=== PATIENT | male | born 1955 | race Caucasian/White ===

== ENCOUNTER 2018-09-15 09:10 | Inpatient (IN) ==
[2018-09-15] MEDS ORDERED: IOPAMIDOL 100 ML BOTTLE IV ONE (09:11)
[2018-09-15] MEDS ORDERED: 0.9 % SODIUM CHLORIDE 1,000 ML IV ONE (09:42)
[2018-09-15 10:26] LABS: Basophils # (Auto) 0 K/mcL (0.0-0.3); Basophils % (Auto) 0.2 % (0.0-2.0); Eosinophils # (Auto) 0 K/mcL (0.0-0.7); Eosinophils % (Auto) 0.2 % (0.0-7.0); Granulocytes % (Auto) 82.6 % (38.0-78.0); Lymphocytes # (Auto) 1.6 K/mcL (1.5-4.8); Lymphocytes % (Auto) 11.4 % (15.5-49.0); Mean Cell Volume 84.5 fL (80.0-100.0); Mean Corpuscular HGB Conc 34.1 g/dL (31.0-36.0); Mean Corpuscular Hemoglobin 28.8 pg (26.0-34.0); Monocytes # (Auto) 0.8 K/mcL (0.1-0.9); Monocytes % (Auto) 5.6 % (1.0-12.0); Platelet Count 192 K/mcL (140-440); RBC 5.32 M/mcL (4.50-5.90); Red Cell Distribution Width 13.3 % (11.5-14.5)
[2018-09-15 10:44] LABS: ALT/SGPT 22 U/l (0-40); Albumin 4.4 gm/dL (3.2-5.2); Albumin/Globulin Ratio 1.3 (1.0-2.3); Alkaline Phosphatase 71 U/L (39-117); Blood Urea Nitrogen 15 mg/dl (8-23); C-Reactive Protein 5.3 mg/dl (0.0-0.8)
--- NOTE | 2018-09-15 10:53 | Cat Scan Report ---
CLINICAL INFORMATION: Right-sided abdominal pain consistent with appendicitis or kidney stone COMPARISON: 11/17/16 TECHNIQUE: Following injection of intravenous contrast the patient was scanned during the portal venous phase from the diaphragm through the symphysis pubis. Sagittal and coronal reformats were created.. The radiation exposure was limited using dose reduction technology. FINDINGS: There are multiple diverticula in the descending and sigmoid colon. There is a perforated diverticulum in the right side of the sigmoid colon, in the right upper pelvis. There is moderate inflammation of the surrounding fat. The inflammation also extends to and partially surrounds the appendix and the right ureter. There is no evidence of appendicitis or urinary tract stone. No hydronephrosis is present. There is no abscess. The free intraperitoneal air extends up to the right diaphragm. No ascites is present. The liver contains coarse calcified granuloma centrally in the right lobe. The liver is otherwise normal. The gallbladder, bile ducts, spleen, pancreas, adrenals and kidneys are normal.. The aorta is normal in caliber. There are couple scattered calcified plaques in the aorta and the origin left renal artery. IMPRESSION: Diverticulitis with perforation of the sigmoid colon in the right upper pelvis resulting in free intraperitoneal air. Dr. Soni was called with the results Interpreted and Authenticated by: Chip Medellin 09/15/18
[2018-09-15] MEDS ORDERED: LEVOFLOXACIN 750 MG/150 ML BAG IV ONE (10:55)
[2018-09-15] MEDS ORDERED: metroNIDAZOLE 500 MG/100 ML BAG IV SCH (11:00)
--- NOTE | 2018-09-15 11:34 | Emergency Department Note ---
Abdominal Pain HPI - General Chief Complaint: Abdominal Pain Stated Complaint: abdominal pain Time Seen by Provider: 09/15/18 09:14 Source: patient Mode of arrival: ambulatory Limitations: no limitations - History of Present Illness HPI Narrative: The patient is a 63-year-old male who presents today with complaint of abdominal pain. It began yesterday at 4 PM. He was not to any anything that required exertion at that time and was simply sitting when it came on acutely. Reports that it progressively worsened since then. He did take Tylenol at home and used a heating pad with minimal relief. Pain is worse with standing and lying flat. Pain is slightly better if he is lying on his side. He denies any diarrhea or vomiting. No fevers or chills. Today he feels slightly nauseous but attributes that to his pain. He did have a bowel movement last night that was normal and he is urinating normally. This has never happened before. He still has his appendix and his gallbladder. He does have a remote history of colon cancer found on colonoscopy that was isolated to the polyp that was removed. He has not required radiation and chemotherapy and his last colonoscopy was in January and was normal. MD Complaint: abdominal pain Onset (ago): day(s) (1) Consistency: constant Location: RUQ, RLQ, suprapubic Severity scale (1-10): 8 Radiation: none - Related Data Home Medications Medication Instructions Recorded Confirmed No Known Home Meds 01/03/18 09/15/18 Allergies Allergy/AdvReac Type Severity Reaction Status Date / Time hydrocodone AdvReac Unknown Nausea Verified 02/10/18 10:07 Review of Systems All systems ED: reviewed and negative except as stated. Abdominal Pain PMH - Past Medical History Attestation: Yes: The following information was validated with the patient. Medical history: Reports: hypertension, other (past colon cancer isolated to a polyp) Surgical history ED: Reports: non-contributory - Social History Smoking status: Never smoker Physical Exam Limitations: no limitations General appearance: alert, other (appears to be in pain, careful with his movements. ) Head: atraumatic, normocephalic ENT: normal exam Neck: Present: normal inspection Chest: Present: normal inspection Respiratory: Present: normal lung sounds bilaterally Cardiovascular: Present: regular rate, normal rhythm Abdominal: Present: soft, tenderness (in the RUQ, RLQ and suprapubic region), normal bowel sounds. Absent: guarding, rebound, rigidity Neurological: Present: alert, oriented X3 Psychiatric: Present: normal affect, normal mood Course Course Narrative: This is a patient with acute abdominal pain that is progressive and worsening over the past day. We'll check lab work and get a CT abdomen and pelvis to rule out appendicitis versus perforation versus nephrolithiasis. - Reevaluation(s) Reevaluation #1: Patient reevaluated after the CT scan of blood work returned. His white blood cell count is 13.[address] showed a perforated diverticulum of the sigmoid colon. There is free air in the abdomen. No abscess appreciated and appendix does not appear to be involved. I placed a call to Dr. Muir, surgeon on-call today who will come and evaluate the patient. In the meantime he is placed on Levaquin and metronidazole IV. Vital Signs Temperature 97.2 F 09/15/18 09:11 Pulse Rate 67 09/15/18 09:11 Respiratory Rate 18 09/15/18 09:11 Blood Pressure 141/84 09/15/18 09:11 Pulse Oximetry (%) 96 09/15/18 09:11 Temperature 97.2 F 09/15/18 09:11 Pulse Rate 66 09/15/18 12:38 Respiratory Rate 18 09/15/18 09:11 Blood Pressure 145/82 09/15/18 12:31 Pulse Oximetry (%) 99 09/15/18 12:38 Abdominal Pain - MDM Narrative Medical decision making narrative: Patient with acute perforation of diverticulum. Placed on IV antibiotics and awaiting surgical consult. Surgery consulted and will admit the patient. - Lab Data Lab results reviewed: Yes I reviewed the patient's lab results. Result diagrams: 09/15/18 09:45 09/15/18 09:45 Lab Results 09/15/18 09/15/18 Range/Units 09:45 09:45 WBC 13.7 H (4.5-11.0) K/mcL RBC 5.32 (4.50-5.90) M/mcL Hgb 15.3 (13.5-16.5) g/dL Hct 44.9 (41.0-55.0) % POC Hct 44.0 (41.0-55.0) % MCV 84.5 (80.0-100.0) fL MCH 28.8 (26.0-34.0) pg MCHC 34.1 (31.0-36.0) g/dL RDW 13.3 (11.5-14.5) % Plt Count 192 (140-440) K/mcL MPV 8.3 (7.4-10.4) fL Gran % 82.6 H (38.0-78.0) % Lymph % (Auto) 11.4 L (15.5-49.0) % [place] % (Auto) 5.6 (1.0-12.0) % Eos % (Auto) 0.2 (0.0-7.0) % Baso % (Auto) 0.2 (0.0-2.0) % Gran # 11.3 H (1.8-8.0) K/mcL Lymph # (Auto) 1.6 (1.5-4.8) K/mcL [place] # (Auto) 0.8 (0.1-0.9) K/mcL Eos # (Auto) 0 (0.0-0.7) K/mcL Baso # (Auto) 0 (0.0-0.3) K/mcL POC Sodium 137 (133-145) mmol/L Sodium 137 (133-145) mmol/L POC Potassium 3.9 (3.3-5.1) mmol/L Potassium 4.1 (3.3-5.1) mmol/L POC Chloride 99 (96-108) mmol/L Chloride 98 (96-108) mmol/L Carbon Dioxide 23 (22-30) mmol/L POC Total CO2 26 (22-30) mmol/L Anion Gap 16.0 (8-16) POC BUN 17 (8-23) mg/dl BUN 15 (8-23) mg/dl Creatinine 1.0 (0.7-1.2) mg/dl POC Creatinine 0.9 (0.7-1.2) mg/dl GFR Calculation 80 Glucose 132 H (70-105) mg/dL POC Glucose 132 H (70-105) mg/dL Calcium 9.6 (8.6-10.4) mg/dl POC WB Ioniz Calcium 1.17 (1.16-1.32) mmol/L Total Bilirubin 0.9 (0.0-1.0) mg/dL AST 23 (0-37) U/l ALT 22 (0-40) U/l Alkaline Phosphatase 71 (39-117) U/L C-Reactive Protein 5.3 H (0.0-0.8) mg/dl Total Protein 7.7 (5.9-8.4) gm/dL Albumin 4.4 (3.2-5.2) gm/dL Globulin 3.3 (2.2-3.7) gm/dL Albumin/Globulin Ratio 1.3 (1.0-2.3) - Radiology Data Radiology results reviewed: Yes I reviewed the patient's radiology results. Diverticulitis with perforation of the sigmoid colon in the right upper pelvis resulting in free intraperitoneal air. Disposition Pt seen by [facility]/PA only: No Clinical Impression: Diverticulitis of intestine with perforation, Peritoneal free air Disposition: Xfer As Inpt ([facility]) Condition: Fair Referrals: Jeremías Echeverria MD [Primary Care Provider] -
--- NOTE | 2018-09-15 12:57 | General Surg History&Physical ---
History of Present Illness Patient information: Note initiated : 09/15/18 at 12:54 pm Service Date, if different from initiated Date: [] Patient: Shaan Toure a 63 y/o M admitted on for abdominal pain. Chief Complaint: [63-year-old male who is seen for an acute abdomen. He had onset of severe sharp pain in his mid and right abdomen about 4 PM yesterday. He had nausea but no vomiting. He denies fever or chills. He has soft bowel movements last evening but no rectal bleeding. He has not had similar pain in the past. He had colonoscopy in 2016 which removed a malignant polyp. He had follow-up colonoscopy January 2018 which was normal. There is no family history of colon cancer. CT of the abdomen shows diverticulitis with small amount of free air. Patient is admitted for antibiotic treatment as initial therapy for initial episode of diverticulitis.] HPI: Mr. Toure is a 63 year old M Review of Systems All systems PM: reviewed and no additional remarkable complaints except as stated - Constitutional no chills, no fever(s) - Cardiovascular no chest pain at rest, no dyspnea on exertion, no lightheadedness - Respiratory no cough, no dyspnea on exertion, no wheezing - Genitourinary nocturia - Musculoskeletal back pain Past History Past medical history: Hypertension Hypercholesterolemia Past surgical history: Bilateral inguinal hernia repair Arthroscopy left knee Past family history: Father age 75 due to far injuries Mother alive age 83 witH prior history of stroke 3 siblings without major illness Past social history: 4 children Retired Never tobacco use Rare alcohol use never drug use Medications and Allergies Home Medications Medication Instructions Recorded Confirmed Type No Known Home Meds 01/03/18 09/15/18 History Allergies Allergy/AdvReac Type Severity Reaction Status Date / Time hydrocodone AdvReac Unknown Nausea Verified 02/10/18 10:07 Exam Temp Pulse Resp BP Pulse Ox 97.2 F 66 18 145/82 99 09/15/18 09:11 09/15/18 12:38 09/15/18 09:11 09/15/18 12:31 09/15/18 12:38 - General physical appearance well developed, well nourished, no distress - Eyes PERRL, normal ocular movement. negative: icteric - ENT normal pinna, normal nares, normal mucosa, no hearing loss, no congestion - Head Head exam IM: Present: atraumatic, normal inspection, normocephalic - Neck no masses, no bruits, trachea midline, no lymphadectomy, no venous distension - Cardiovascular Cardiovascular exam IM: Present: normal rate and rhythm, RRR, +S1, +S2. Absent : gallop, irregular rhythm, JVD, tachycardia - Respiratory normal expansion, normal respiratory effort, clear to auscultation - Abdomen Abdomen: Present: soft, tender (tenderness in the suprapubic area and to the right of midline in the lower abdomen), bowel sounds, guarding Hernia: Present: none - Genitourinary Present: normal penis with no external lesions - Rectum Rectum: Present: normal sphincter tone, no hemorrhoids, no tenderness, no masses , no bleeding - Integumentary Present: no rash, no growths, no abnormal pigmentation - Neurologic Present: normal coordination, normal sensation - Musculoskeletal Present: normal gait, normal posture - Psychiatric Present: oriented to time, oriented to person, oriented to place, speech is normal, memory intact Assessment and Plan (1) Diverticulitis of intestine with perforation Intravenous Zosyn and metronidazole Bowel rest Follow-up CT in 4 days Status: Acute (2) Hyperlipidemia Status: Chronic Comment: 2002 (3) Hypertension Status: Chronic
[2018-09-15] MEDS ORDERED: HYDROmorphone 2 MG/ML VIAL IV PRN (14:02)
[2018-09-15] MEDS ORDERED: ONDANSETRON 4 MG/2 ML VIAL IV PRN (14:02)
[2018-09-15] MEDS: 0.9 % SODIUM CHLORIDE 1,000 ML IV SCH (14:17)
[2018-09-15] MEDS: ACETAMINOPHEN 1,000 MG in PREMIX 1 BAG IV SCH ×2 (14:19→20:08)
[2018-09-15] MEDS: PIPERACILLIN SODIUM/TAZOBACTAM 3.375 GM in DEXTROSE 5% IN WATER 50 ML IV SCH ×3 (15:35→23:25)
[2018-09-15] MEDS: 0.9 % SODIUM CHLORIDE 10 ML SYRINGE IV SCH ×2 (15:35→21:30)
[2018-09-15] MEDS: PANTOPRAZOLE 40 MG VIAL IV SCH (17:37)
[2018-09-15] MEDS: metroNIDAZOLE 500 MG/100 ML BAG IV SCH (21:30)
[2018-09-16] MEDS: 0.9 % SODIUM CHLORIDE 1,000 ML IV SCH ×5 (00:59→21:45)
[2018-09-16] MEDS: ACETAMINOPHEN 1,000 MG in PREMIX 1 BAG IV SCH ×3 (02:06→20:20)
[2018-09-16] MEDS: PIPERACILLIN SODIUM/TAZOBACTAM 3.375 GM in DEXTROSE 5% IN WATER 50 ML IV SCH ×4 (05:42→23:39)
[2018-09-16] MEDS: metroNIDAZOLE 500 MG/100 ML BAG IV SCH ×3 (05:42→21:44)
[2018-09-16 06:53] LABS: Basophils # (Auto) 0 K/mcL (0.0-0.3); Basophils % (Auto) 0.2 % (0.0-2.0); Eosinophils # (Auto) 0 K/mcL (0.0-0.7); Eosinophils % (Auto) 0.5 % (0.0-7.0); Granulocytes % (Auto) 80.9 % (38.0-78.0); Lymphocytes % (Auto) 11.7 % (15.5-49.0); Mean Cell Volume 86.1 fL (80.0-100.0); Mean Corpuscular HGB Conc 33.6 g/dL (31.0-36.0); Mean Corpuscular Hemoglobin 28.9 pg (26.0-34.0); Monocytes # (Auto) 0.6 K/mcL (0.1-0.9); Monocytes % (Auto) 6.7 % (1.0-12.0); Platelet Count 159 K/mcL (140-440); RBC 4.58 M/mcL (4.50-5.90); Red Cell Distribution Width 13.8 % (11.5-14.5)
[2018-09-16 07:35] LABS: ALT/SGPT 44 U/l (0-40); Albumin 3.7 gm/dL (3.2-5.2); Albumin/Globulin Ratio 1.4 (1.0-2.3); Alkaline Phosphatase 88 U/L (39-117); Bilirubin,Direct 0.3 mg/dL (0.0-0.3); Blood Urea Nitrogen 13 mg/dl (8-23); Gamma Glutamyl Transpeptidase 78 U/L (8-61); Uric Acid 2.7 mg/dL (2.5-8.0)
[2018-09-16] MEDS: PANTOPRAZOLE 40 MG VIAL IV SCH ×2 (07:44→17:29)
[2018-09-16] MEDS: 0.9 % SODIUM CHLORIDE 10 ML SYRINGE IV SCH ×3 (07:48→21:57)
[2018-09-16] MEDS: ENOXAPARIN 40 MG/0.4 ML SYRINGE SQ SCH (08:37)
[2018-09-16] MEDS ORDERED: ACETAMINOPHEN 1,000 MG/100 ML BOTTLE IV SCH (09:00)
--- NOTE | 2018-09-16 13:44 | General Surgery Progress Note ---
Subjective Patient reports: feels better, pain is less, no flatus, no bowel movement, afebrile Narrative: Note initiated : 09/16/18 at 1:43 pm Service Date, if different from initiated Date: [] Patient: Shaan Toure 63 y/o M admitted on 09/15/18 for abdominal pain. Chief Complaint: [patient feels better. He has less pain. He denies nausea. He has not had any fever or chills. White blood count 8.7 hemoglobin 13.2] Objective Temp Pulse Resp BP Pulse Ox 98.1 F 65 14 115/73 98 09/16/18 12:00 09/16/18 12:00 09/16/18 12:00 09/16/18 12:00 09/16/18 12:00 - Additional Data Intake & Output - Last 24 hours: Intake & Output 09/14/18 09/15/18 09/16/18 09/17/18 05:59 05:59 05:59 05:59 Intake Total 2997 / 2997 1230 / 1230 Output Total 2125 / 2125 400 / 400 Balance 872 / 872 830 / 830 Weight 166 lb 166 lb - General physical appearance well developed, well nourished, no distress - Eyes PERRL, normal ocular movement - ENT normal pinna, normal nares, normal mucosa, no hearing loss, no congestion - Neck no masses, no bruits, trachea midline, no lymphadectomy, no venous distension - Respiratory normal expansion, normal respiratory effort, clear to percussion, clear to auscultation - Cardiovascular Cardiovascular exam: Present: normal rate and rhythm, RRR, +S1, +S2. Absent: JVD, tachycardia - Abdomen tender (moderate mid suprapubic and right lower quadrant tenderness;; active bowel sounds; no mass), bowel sounds (present), surgical scars (none), masses ( none) - Integumentary no rash, no growths, no abnormal pigmentation - Neurologic normal coordination, normal sensation - Musculoskeletal normal gait, normal posture - Psychiatric oriented to time, oriented to person, oriented to place, speech is normal, memory intact - Labs 09/16/18 04:15 09/16/18 04:15 Diabetes panel 09/16/18 Range/Units 04:15 Sodium 140 (133-145) mmol/L Potassium 3.9 (3.3-5.1) mmol/L Chloride 103 (96-108) mmol/L Carbon Dioxide 25 (22-30) mmol/L BUN 13 (8-23) mg/dl Creatinine 1.1 (0.7-1.2) mg/dl Glucose 112 H (70-105) mg/dL Calcium 8.4 L (8.6-10.4) mg/dl AST 36 (0-37) U/l ALT 44 H (0-40) U/l Alkaline Phosphatase 88 (39-117) U/L Total Protein 6.3 (5.9-8.4) gm/dL Albumin 3.7 (3.2-5.2) gm/dL Triglycerides 59 (<150) mg/dl Calcium panel 09/16/18 Range/Units 04:15 Calcium 8.4 L (8.6-10.4) mg/dl Phosphorus 2.5 L (2.7-4.5) mg/dL Albumin 3.7 (3.2-5.2) gm/dL Pituitary panel 09/16/18 Range/Units 04:15 Sodium 140 (133-145) mmol/L Potassium 3.9 (3.3-5.1) mmol/L Chloride 103 (96-108) mmol/L Carbon Dioxide 25 (22-30) mmol/L BUN 13 (8-23) mg/dl Creatinine 1.1 (0.7-1.2) mg/dl Glucose 112 H (70-105) mg/dL Calcium 8.4 L (8.6-10.4) mg/dl Adrenal panel 09/16/18 Range/Units 04:15 Sodium 140 (133-145) mmol/L Potassium 3.9 (3.3-5.1) mmol/L Chloride 103 (96-108) mmol/L Carbon Dioxide 25 (22-30) mmol/L BUN 13 (8-23) mg/dl Creatinine 1.1 (0.7-1.2) mg/dl Glucose 112 H (70-105) mg/dL Calcium 8.4 L (8.6-10.4) mg/dl Total Bilirubin 1.2 H (0.0-1.0) mg/dL AST 36 (0-37) U/l ALT 44 H (0-40) U/l Alkaline Phosphatase 88 (39-117) U/L Total Protein 6.3 (5.9-8.4) gm/dL Albumin 3.7 (3.2-5.2) gm/dL Assessment and Plan (1) Diverticulitis of intestine with perforation Status: Acute Assessment and plan: cLINICALLY IMPROVED ON iv ANTIBIOTICS We'll continue present therapy Current Visit: Yes (2) Hyperlipidemia Problem details: 2002 Status: Chronic Current Visit: No (3) Hypertension Status: Chronic Current Visit: No - Time Spent With Patient Total time spent is greater than 50% in coordination of care (as documented) at patient's floor/unit and/or counseling patient:
[2018-09-17] MEDS: ACETAMINOPHEN 1,000 MG in PREMIX 1 BAG IV SCH ×2 (02:12→07:54)
[2018-09-17] MEDS: 0.9 % SODIUM CHLORIDE 10 ML SYRINGE IV SCH ×3 (05:21→22:46)
[2018-09-17] MEDS: PIPERACILLIN SODIUM/TAZOBACTAM 3.375 GM in DEXTROSE 5% IN WATER 50 ML IV SCH ×3 (05:29→17:11)
[2018-09-17 05:58] LABS: Basophils # (Auto) 0 K/mcL (0.0-0.3); Basophils % (Auto) 0.1 % (0.0-2.0); Eosinophils # (Auto) 0.1 K/mcL (0.0-0.7); Granulocytes % (Auto) 75.7 % (38.0-78.0); Lymphocytes # (Auto) 1.1 K/mcL (1.5-4.8); Lymphocytes % (Auto) 15.2 % (15.5-49.0); Mean Cell Volume 85.4 fL (80.0-100.0); Mean Corpuscular HGB Conc 34.2 g/dL (31.0-36.0); Mean Corpuscular Hemoglobin 29.2 pg (26.0-34.0); Monocytes # (Auto) 0.6 K/mcL (0.1-0.9); Platelet Count 154 K/mcL (140-440); RBC 4.24 M/mcL (4.50-5.90); Red Cell Distribution Width 13.7 % (11.5-14.5)
[2018-09-17] MEDS: metroNIDAZOLE 500 MG/100 ML BAG IV SCH ×3 (06:01→22:46)
[2018-09-17] MEDS: 0.9 % SODIUM CHLORIDE 1,000 ML IV SCH ×4 (06:01→23:01)
[2018-09-17 07:47] LABS: ALT/SGPT 27 U/l (0-40); Albumin 3.3 gm/dL (3.2-5.2); Albumin/Globulin Ratio 1.1 (1.0-2.3); Alkaline Phosphatase 89 U/L (39-117); Bilirubin,Direct < 0.2 mg/dL (0.0-0.3); Blood Urea Nitrogen 10 mg/dl (8-23); Gamma Glutamyl Transpeptidase 83 U/L (8-61); Uric Acid 2.8 mg/dL (2.5-8.0)
[2018-09-17] MEDS: PANTOPRAZOLE 40 MG VIAL IV SCH ×2 (07:50→17:11)
[2018-09-17] MEDS ORDERED: ACETAMINOPHEN 1,000 MG/100 ML BOTTLE IV SCH (08:30)
[2018-09-17] MEDS: ENOXAPARIN 40 MG/0.4 ML SYRINGE SQ SCH (08:44)
--- NOTE | 2018-09-17 14:06 | General Surgery Progress Note ---
Subjective Patient reports: feels better, pain is less, flatus, bowel movement, fever Narrative: Note initiated : 09/17/18 at 2:04 pm Service Date, if different from initiated Date: [] Patient: Shaan Toure 63 y/o M admitted on 09/15/18 for abdominal pain. Chief Complaint: [patient feels better. He still has suprapubic and right lower quadrant pain. He denies nausea vomiting. He had multiple bowel movements last evening and today. Maximum temperature 100.5. White blood count 7.2 hemoglobin 12.4 and phosphorus 2.5] Objective Temp Pulse Resp BP Pulse Ox 96.9 F L 61 14 132/71 97 09/17/18 11:25 09/17/18 11:25 09/17/18 11:25 09/17/18 11:25 09/17/18 11:25 - Additional Data Intake & Output - Last 24 hours: Intake & Output 09/15/18 09/16/18 09/17/18 09/18/18 05:59 05:59 05:59 05:59 Intake Total 2997 / 2997 3980 / 3980 250 / 250 Output Total 2125 / 2125 2925 / 2925 400 / 400 Balance 872 / 872 1055 / 1055 -150 / -150 Weight 166 lb 166 lb 5 oz - General physical appearance well developed, well nourished, no distress, moderate pain - Eyes PERRL, normal ocular movement - ENT normal pinna (4), normal nares, normal mucosa, no hearing loss, no congestion - Neck no masses, no bruits, trachea midline, no lymphadectomy, no venous distension - Respiratory normal expansion, normal respiratory effort, clear to auscultation - Cardiovascular Cardiovascular exam: Present: normal rate and rhythm, RRR, +S1, +S2. Absent: JVD, tachycardia - Abdomen tender (tenderness in suprapubic area right lower quadrant with mild guarding), bowel sounds (present), surgical scars (none), masses (none) - Integumentary no rash, no growths, no abnormal pigmentation - Neurologic normal coordination, normal sensation - Musculoskeletal normal gait, normal posture - Psychiatric oriented to time, oriented to person, oriented to place, speech is normal, memory intact - Labs 09/17/18 04:23 09/17/18 04:23 Diabetes panel 09/17/18 Range/Units 04:23 Sodium 141 (133-145) mmol/L Potassium 3.8 (3.3-5.1) mmol/L Chloride 105 (96-108) mmol/L Carbon Dioxide 24 (22-30) mmol/L BUN 10 (8-23) mg/dl Creatinine 1.0 (0.7-1.2) mg/dl Glucose 87 (70-105) mg/dL Calcium 8.6 (8.6-10.4) mg/dl AST 18 (0-37) U/l ALT 27 (0-40) U/l Alkaline Phosphatase 89 (39-117) U/L Total Protein 6.3 (5.9-8.4) gm/dL Albumin 3.3 (3.2-5.2) gm/dL Triglycerides 76 (<150) mg/dl Calcium panel 09/17/18 Range/Units 04:23 Calcium 8.6 (8.6-10.4) mg/dl Phosphorus 2.5 L (2.7-4.5) mg/dL Albumin 3.3 (3.2-5.2) gm/dL Pituitary panel 09/17/18 Range/Units 04:23 Sodium 141 (133-145) mmol/L Potassium 3.8 (3.3-5.1) mmol/L Chloride 105 (96-108) mmol/L Carbon Dioxide 24 (22-30) mmol/L BUN 10 (8-23) mg/dl Creatinine 1.0 (0.7-1.2) mg/dl Glucose 87 (70-105) mg/dL Calcium 8.6 (8.6-10.4) mg/dl Adrenal panel 09/17/18 Range/Units 04:23 Sodium 141 (133-145) mmol/L Potassium 3.8 (3.3-5.1) mmol/L Chloride 105 (96-108) mmol/L Carbon Dioxide 24 (22-30) mmol/L BUN 10 (8-23) mg/dl Creatinine 1.0 (0.7-1.2) mg/dl Glucose 87 (70-105) mg/dL Calcium 8.6 (8.6-10.4) mg/dl Total Bilirubin 0.6 (0.0-1.0) mg/dL AST 18 (0-37) U/l ALT 27 (0-40) U/l Alkaline Phosphatase 89 (39-117) U/L Total Protein 6.3 (5.9-8.4) gm/dL Albumin 3.3 (3.2-5.2) gm/dL Assessment and Plan (1) Diverticulitis of intestine with perforation Status: Acute Assessment and plan: cLINICALLY IMPROVED ON iv ANTIBIOTICS We'll continue present therapy CT of abdomen and pelvis with contrast in the morning Current Visit: Yes (2) Hyperlipidemia Problem details: 2003 Status: Chronic Current Visit: No (3) Hypertension Status: Chronic Current Visit: No - Time Spent With Patient Total time spent is greater than 50% in coordination of care (as documented) at patient's floor/unit and/or counseling patient:
[2018-09-17] MEDS: ACETAMINOPHEN 1,000 MG/100 ML BOTTLE IV SCH ×2 (14:48→19:39)
[2018-09-18] MEDS: PIPERACILLIN SODIUM/TAZOBACTAM 3.375 GM in DEXTROSE 5% IN WATER 50 ML IV SCH ×3 (00:41→11:48)
[2018-09-18] MEDS: ACETAMINOPHEN 1,000 MG/100 ML BOTTLE IV SCH ×4 (02:45→14:47)
[2018-09-18 05:39] LABS: Basophils # (Auto) 0 K/mcL (0.0-0.3); Basophils % (Auto) 0.3 % (0.0-2.0); Eosinophils # (Auto) 0.2 K/mcL (0.0-0.7); Eosinophils % (Auto) 2.5 % (0.0-7.0); Granulocytes % (Auto) 66.9 % (38.0-78.0); Lymphocytes # (Auto) 1.3 K/mcL (1.5-4.8); Lymphocytes % (Auto) 21.2 % (15.5-49.0); Mean Cell Volume 85.1 fL (80.0-100.0); Mean Corpuscular HGB Conc 34.2 g/dL (31.0-36.0); Mean Corpuscular Hemoglobin 29.1 pg (26.0-34.0); Monocytes # (Auto) 0.6 K/mcL (0.1-0.9); Monocytes % (Auto) 9.1 % (1.0-12.0); Platelet Count 177 K/mcL (140-440); RBC 4.46 M/mcL (4.50-5.90); Red Cell Distribution Width 13.6 % (11.5-14.5)
[2018-09-18] MEDS: metroNIDAZOLE 500 MG/100 ML BAG IV SCH ×2 (05:45→14:44)
[2018-09-18 05:59] LABS: ALT/SGPT 19 U/l (0-40); Albumin 3.4 gm/dL (3.2-5.2); Albumin/Globulin Ratio 1.2 (1.0-2.3); Alkaline Phosphatase 104 U/L (39-117); Bilirubin,Direct < 0.2 mg/dL (0.0-0.3); Blood Urea Nitrogen 8 mg/dl (8-23); Gamma Glutamyl Transpeptidase 73 U/L (8-61); Uric Acid 3.4 mg/dL (2.5-8.0)
[2018-09-18] MEDS: 0.9 % SODIUM CHLORIDE 10 ML SYRINGE IV SCH ×2 (06:45→14:03)
[2018-09-18] MEDS: 0.9 % SODIUM CHLORIDE 1,000 ML IV SCH ×3 (06:46→14:03)
[2018-09-18] MEDS: PANTOPRAZOLE 40 MG VIAL IV SCH ×2 (08:17→17:30)
[2018-09-18] MEDS ORDERED: IOPAMIDOL 100 ML BOTTLE IV ONE (08:41)
[2018-09-18] MEDS: ENOXAPARIN 40 MG/0.4 ML SYRINGE SQ SCH (09:23)
--- NOTE | 2018-09-18 09:50 | Cat Scan Report ---
CLINICAL INFORMATION: Follow up diverticulitis COMPARISON: Abdomen and pelvic CT from three days prior - 09/15/2018 TECHNIQUE: Following enteric contrast, 80 cc of Isovue-300 were injected intravenously, and 60 seconds later, 0.625 mm helical slices were obtained from the mid heart through the subtrochanteric regions. Following reconstruction, 2.5 mm sagittal, coronal and axial reformatted images were processed and reviewed at bone, lung and soft tissue windows. Five minutes later, 0.625 mm helical slices were obtained from the mid heart through the kidneys and viewed at soft tissue windows.The exam was performed using radiation dose optimization techniques including, but not limited to, automated exposure control, adjustment of the mA and/or kV according to patient size and use of iterative reconstruction technique. FINDINGS: Lung bases show mild subsegmental atelectasis which is improved. No effusion. The visualized heart is normal in size. Images through the abdomen show the gallbladder, intrahepatic and common bile ducts to be unremarkable. There is a 10 mm calcified granuloma in the right hepatic lobe, but no significant hepatic abnormality. Both kidneys, adrenal glands, spleen, pancreas and aorta, including aortic branches, are normal in size, configuration and attenuation without focal lesion. Images through the pelvis show prostate, seminal vesicles and urinary bladder are grossly normal. A 5 x 3 cm intermesenteric abscess has developed in the lower quadrant density CT three days prior. Adjacent to this abscess, there is a 15 cm segment of distal ileum demonstrating marked inflammatory thickening of the wall and plica circulares folds. There is also phlegmon and small amounts of free air in the peritoneal cavity. The volume of free air has not increased since prior CT. Sigmoid diverticulosis is noted and there is a portion of the redundant sigmoid colon extending into the right lower quadrant which shows a small segment of either primary or secondary inflammation. The remainder of the colon is unremarkable. The appendix tip extends into the inflamed region and may be secondarily inflamed. On the previous study, the appendix was normal. The remainder of the small bowel and stomach are normal. Bone windows show no osseous abnormality. IMPRESSION: 1. New 5 x 3 cm intermesenteric abscess in the right lower quadrant with surrounding phlegmon and stable, small amounts of free air. The abscess is adjacent to a 15 cm segment of inflamed distal ileum. This may actually represent primary small bowel enteritis rather than sigmoid diverticulitis. The redundant sigmoid colon does demonstrate diverticulosis and extends to this region with a small segment of either secondary or primary inflammation. The appendix, appears normal on the previous study, however, the tip of the appendix now appears secondarily inflamed. 2. Consider: Colonoscopy to exam both the sigmoid colon and the distal ileum Interpreted and Authenticated by: Davion Sampson 09/18/18
--- NOTE | 2018-09-18 16:25 | Discharge Summary ---
Providers - Providers Patient information: Note initiated : 09/18/18 at 4:21 pm Service Date, if different from initiated Date: [] Patient: Shaan Toure 63 y/o M admitted on 09/15/18 for Abd Pain/ Diverticulitis of Intestine w/Perforation. Chief Complaint: [] Date of admission: 09/15/18 Discharge date: 09/18/18 Attending physician: Jon Muir Hospitalization Hospital course: 63-year-old male admitted with acute diverticulitis.. The patient had onset of severe lower hypogastric pain and right-sided pain 1 day prior to admission. It continued and he was seen in the emergency room where he had a tender abdomen and leukocytosis. CT showed inflammation of sigmoid colon to the right of midline with inflammatory changes in the right lower quadrant with tissue edema and small amount of free air.. He was admitted and treated with IV antibiotics. Follow-up evaluation by CT shows an intermesenteric abscess measuring 5 x 3 cm.. There has not been any increase in free air. A loop of small bowel as well as the sigmoid colon shows inflammation. The small bowel was not previously involved so it is more likely that this is all diverticulitis.. There is no history of Crohn's disease or regional enteritis. Patient's white count is normal and his abdominal exam is improving though he still has mild tenderness in the hypogastrium. He is having regular bowel movements.. Discharge diagnosis: diverticulitis with perforation AND ABSCESS Reason for admission: acute abdomen with free peritoneal air Procedures: None Pertinent studies/significant findings: CT of abdomen and pelvis with IV contrast Complications: None Exam Temp Pulse Resp BP Pulse Ox 97.8 F 62 16 199/95 97 09/18/18 15:56 09/18/18 15:56 09/18/18 15:56 09/18/18 15:56 09/18/18 15:56 - General physical appearance well developed, well nourished, no distress - Eyes PERRL, normal ocular movement - ENT normal pinna, normal nares, normal mucosa, no hearing loss, no congestion - Head Head exam IM: Present: atraumatic, normocephalic - Neck no masses, no bruits, trachea midline, no lymphadectomy, no venous distension - Cardiovascular Cardiovascular exam IM: Present: normal rate and rhythm - Respiratory normal expansion, normal respiratory effort, clear to percussion, clear to auscultation - Abdomen Abdomen: Present: soft, tender (tenderness and hypogastrium and right lower quadrant), bowel sounds Hernia: Present: none - Genitourinary Present: normal penis with no external lesions - Integumentary Present: no rash, no growths, no abnormal pigmentation - Neurologic Present: normal coordination, normal sensation - Musculoskeletal Present: normal gait, normal posture - Psychiatric Present: oriented to time, oriented to person, oriented to place, speech is normal, memory intact Discharge Plan - Patient/Caregiver Discharge Instructions Activity: increase activity as tolerated Diet: Full Liquid ( full liquid diet 1 week then advance to soft diet ) Additional Instructions: You may shower Full Liquid diet for 1 week, Then soft foods as tolerated. Prescriptions: Ciprofloxacin HCl [Cipro] 500 mg PO BID #60 tab metroNIDAZOLE [Metronidazole] 500 mg PO Q6 #120 tab - Follow up Plan Follow up with: Jeremías Echeverria MD [Primary Care Provider] - Jon Muir MD [Physician] - 10/02/18 9:15 am Disposition: Home, Self-Care Prognosis: Good Rehab Potential: Good I certify that the patient requires SNF services.: No Overall status at discharge: patient is not back to baseline Pending Studies Resuscitation Status Full Code Diet Clear Liquid Diet Start Sun Sep 17 1407 Enoxaparin Sodium (Lovenox) 40 mg SQ DAILY [facility] Last Admin: 09/18/18 09:23 Dose: 40 mg Admin: 09/17/18 08:44 Dose: 40 mg Admin: 09/16/18 08:37 Dose: 40 mg Metronidazole (Flagyl) 500 mg in 100 mls @ 100 mls/hr IV Q8H [facility] Last Admin: 09/18/18 14:44 Dose: 100 mls/hr Infusion: 09/18/18 06:45 Dose: 0 mls/hr Admin: 09/18/18 05:45 Dose: 100 mls/hr Infusion: 09/17/18 23:45 Dose: 0 mls/hr Admin: 09/17/18 22:46 Dose: 100 mls/hr Infusion: 09/17/18 14:45 Dose: 0 mls/hr Admin: 09/17/18 13:32 Dose: 100 mls/hr Infusion: 09/17/18 07:05 Dose: 0 mls/hr Admin: 09/17/18 06:01 Dose: 100 mls/hr Infusion: 09/16/18 22:44 Dose: 100 mls/hr Admin: 09/16/18 21:44 Dose: 100 mls/hr Infusion: 09/16/18 15:00 Dose: 0 mls/hr Admin: 09/16/18 13:50 Dose: 100 mls/hr Infusion: 09/16/18 06:42 Dose: 100 mls/hr Admin: 09/16/18 05:42 Dose: 100 mls/hr Infusion: 09/15/18 22:35 Dose: 0 mls/hr Admin: 09/15/18 21:30 Dose: 100 mls/hr Sodium Chloride (Sodium Chloride 0.9%) 1,000 mls @ 125 mls/hr IV .Q8H [facility] Last Admin: 09/18/18 14:03 Dose: Not Given Admin: 09/18/18 08:14 Dose: 100 mls/hr Infusion: 09/18/18 08:14 Dose: 0 mls/hr Admin: 09/18/18 06:46 Dose: Not Given Admin: 09/17/18 23:01 Dose: Not Given Admin: 09/17/18 19:41 Dose: 125 mls/hr Infusion: 09/17/18 14:01 Dose: 125 mls/hr Admin: 09/17/18 13:31 Dose: Not Given Admin: 09/17/18 06:01 Dose: 125 mls/hr Infusion: 09/17/18 05:45 Dose: 125 mls/hr Admin: 09/16/18 21:45 Dose: 125 mls/hr Infusion: 09/16/18 19:44 Dose: 125 mls/hr Admin: 09/16/18 13:54 Dose: Not Given Admin: 09/16/18 11:44 Dose: 125 mls/hr Infusion: 09/16/18 08:59 Dose: 125 mls/hr Admin: 09/16/18 07:48 Dose: Not Given Admin: 09/16/18 00:59 Dose: 125 mls/hr Infusion: 09/15/18 22:17 Dose: 125 mls/hr Admin: 09/15/18 14:17 Dose: 125 mls/hr Piperacillin Sod/Tazobactam (Sod 3.375 gm/ Dextrose) 50 mls @ 100 mls/hr IV Q6H [facility] Last Infusion: 09/18/18 12:18 Dose: 0 mls/hr Admin: 09/18/18 11:48 Dose: 100 mls/hr Infusion: 09/18/18 05:49 Dose: 0 mls/hr Admin: 09/18/18 05:02 Dose: 100 mls/hr Infusion: 09/18/18 01:15 Dose: 0 mls/hr Admin: 09/18/18 00:41 Dose: 100 mls/hr Infusion: 09/17/18 17:45 Dose: 0 mls/hr Admin: 09/17/18 17:11 Dose: 100 mls/hr Infusion: 09/17/18 12:14 Dose: 100 mls/hr Admin: 09/17/18 11:44 Dose: 100 mls/hr Infusion: 09/17/18 06:00 Dose: 0 mls/hr Admin: 09/17/18 05:29 Dose: 100 mls/hr Infusion: 09/17/18 00:09 Dose: 100 mls/hr Admin: 09/16/18 23:39 Dose: 100 mls/hr Infusion: 09/16/18 18:00 Dose: 100 mls/hr Admin: 09/16/18 17:30 Dose: 100 mls/hr Infusion: 09/16/18 12:15 Dose: 0 mls/hr Admin: 09/16/18 11:44 Dose: 100 mls/hr Infusion: 09/16/18 06:12 Dose: 100 mls/hr Admin: 09/16/18 05:42 Dose: 100 mls/hr Infusion: 09/16/18 00:00 Dose: 0 mls/hr Admin: 09/15/18 23:25 Dose: 100 mls/hr Infusion: 09/15/18 20:11 Dose: 0 mls/hr Admin: 09/15/18 18:56 Dose: 100 mls/hr Infusion: 09/15/18 16:05 Dose: 100 mls/hr Admin: 09/15/18 15:35 Dose: 100 mls/hr Acetaminophen (Ofirmev) 1,000 mg in 100 mls @ 200 mls/hr IV Q6H [facility] Stop: 09/19/18 19:59 Last Admin: 09/18/18 14:47 Dose: Not Given Infusion: 09/18/18 09:53 Dose: 0 mls/hr Admin: 09/18/18 09:23 Dose: 200 mls/hr Infusion: 09/18/18 03:15 Dose: 0 mls/hr Admin: 09/18/18 02:45 Dose: 200 mls/hr Infusion: 09/17/18 20:15 Dose: 0 mls/hr Admin: 09/17/18 19:39 Dose: 200 mls/hr Admin: 09/17/18 14:48 Dose: Not Given Pantoprazole Sodium (Protonix) 40 mg IV BIDAC [facility] Last Admin: 09/18/18 08:17 Dose: 40 mg Admin: 09/17/18 17:11 Dose: 40 mg Admin: 09/17/18 07:50 Dose: 40 mg Admin: 09/16/18 17:29 Dose: 40 mg Admin: 09/16/18 07:44 Dose: 40 mg Admin: 09/15/18 17:37 Dose: 40 mg Sodium Chloride (Saline Flush) 10 ml IV Q8 [facility] Last Admin: 09/18/18 14:03 Dose: Not Given Admin: 09/18/18 06:45 Dose: Not Given Admin: 09/17/18 22:46 Dose: Not Given Admin: 09/17/18 13:31 Dose: Not Given Admin: 09/17/18 05:21 Dose: Not Given Admin: 09/16/18 21:57 Dose: Not Given Admin: 09/16/18 13:54 Dose: Not Given Admin: 09/16/18 07:48 Dose: Not Given Admin: 09/15/18 21:30 Dose: Not Given Admin: 09/15/18 15:35 Dose: 10 ml Shift Summary 09/18/18 03:47 Shift Summary by Denise Ridley VSS. Afebrile. A&Ox4. Receiving scheduled Ofirmev and IV ABO. Denies pain. Ambulatory to bathroom. 1 BM tonight, very small. IV to L hand running NS 0.9% at 125mls/hr. Initialized on 09/18/18 03:47 - END OF NOTE
== END 2018-09-18 18:12 | disposition home or self-care (01) | DRG 392 ==
LOC: ED 09:10 → MEDSUR 13:45
PROVIDERS: ADMIT Family Medicine Adult Medicine; ATTEND Family Medicine Adult Medicine
CPT/HCPCS: 80047; 85014; 87324; 87449; 99231; 99238; J0131; J1650; J1956; J2543; J7030; J7060; Q9967